=== PATIENT | male | born 1975 | race Caucasian/White ===

== ENCOUNTER 2018-05-23 17:46 | Emergency (ER) | payer BC ==
[~2018-05-23] VITALS: Ht 167.6 cm; Wt 77.3 kg
[2018-05-23 18:00] VITALS: Ht 167.6 cm; Wt 77.3 kg
[2018-05-23] MEDS ORDERED: KEPPRA1000 MG PO (18:03)
[2018-05-23] MEDS ORDERED: ATARAX 25 MG TA25 MG PO (19:14)
[2018-05-23 20:04] VITALS: BP 107/73
== END 2018-05-23 20:05 | disposition home or self-care (01) ==
LOC: D.ER 17:46
DX: L20.9 Atopic dermatitis, unspecified (principal); F20.9 Schizophrenia, unspecified; F41.9 Anxiety disorder, unspecified; K21.9 Gastro-esophageal reflux disease without esophagitis